=== PATIENT | male | born 1995 | race Two or more races ===

== ENCOUNTER 2017-01-10 03:55 | Emergency (ER) | payer BC ==
[2017-01-10 04:21] VITALS: BP 113/63; PULSE 62; TEMP 98.1; BMI 32.5
--- NOTE | 2017-01-10 04:54 | PDOC ---
History of Present Illness - General History Source: Patient <Kalpesh Lozano - Last Filed: 01/10/17 05:25> - General History Source: Patient Exam Limitations: No Limitations - History of Present Illness Initial Comments: 01/10/17 05:02 The patient is a 21 year old male with no significant past medical history who presents to the ED for bilateral hand pain s/p injury prior to arrival. Patient reports he was angry when he hit the chair and sustained pain to both hands. States the pain is in the palm of the right and left hand, but greater in the right. He is right hand dominant. Patient reports the pain starts from MCP joint at the 4th and 5th digits and it tracks up to the palmar aspect of the wrist. The patient denies fever, chills, cough, SOB, chest pain, and palpitations. The patient denies abdominal pain, nausea, vomiting, and diarrhea. <Amanda Aiken - Last Filed: 01/10/17 05:38> - General Chief Complaint: Injury Stated Complaint: HAND INJURY Time Seen by Provider: 01/10/17 04:53 Past History - Immunization History Immunization Up to Date: No - Psycho/Social/Smoking Cessation Hx Suicidal Ideation: No Smoking History: Never smoked Have you smoked in the past 12 months: No Hx Alcohol Use: No Drug/Substance Use Hx: No Substance Use Type: None <Kalpesh Lozano - Last Filed: 01/10/17 05:25> <Amanda Aiken - Last Filed: 01/10/17 05:38> - Past Medical History Allergies/Adverse Reactions: Allergies Allergy/AdvReac Type Severity Reaction Status Date / Time Penicillins Allergy Verified 01/10/17 04:41 Home Medications: Ambulatory Orders Ibuprofen 800 mg PO TID #30 tablet 01/10/17 Review of Systems - Review of Systems Able to Perform ROS?: Yes Comments:: 01/10/17 05:03 CONSTITUTIONAL: Absent: fever, no chills, no fatigue EYES: Absent: visual changes ENT: Absent: ear pain, no sore throat CARDIOVASCULAR: Absent: chest pain, no palpitations RESPIRATORY: Absent: cough, no SOB GI: Absent: abdominal pain, no nausea, no vomiting, no constipation, no diarrhea GENITOURINARY: Absent: dysuria, no frequency, no hematuria MUSCULOSKELETAL: +bilateral hand pain Absent: back pain SKIN: Absent: rash NEURO: Absent: headache <Amanda Aiken - Last Filed: 01/10/17 05:38> *Physical Exam - Vital Signs Last Vital Signs Temp Pulse Resp BP Pulse Ox 98.1 F 62 17 113/63 98 01/10/17 04:16 01/10/17 04:16 01/10/17 04:16 01/10/17 04:16 01/10/17 04:16 <Kalpesh Lozano - Last Filed: 01/10/17 05:25> - Vital Signs Last Vital Signs Temp Pulse Resp BP Pulse Ox 98.1 F 62 17 113/63 98 01/10/17 04:16 01/10/17 04:16 01/10/17 04:16 01/10/17 04:16 01/10/17 04:16 - Physical Exam Comments: 01/10/17 05:03 GENERAL: Well-appearing, well-nourished. No apparent distress. HEENT: Normocephalic, atraumatic. PERRL, EOM intact. CARDIOVASCULAR: Normal S1, S2. Regular rate and rhythm. PULMONARY: Clear to auscultation bilaterally. ABDOMEN: Soft, non-distended, non-tender. EXTREMITIES: Normal ROM in all four extremities. Tenderness along the palmar aspect of both hands, greater on the right. No bony deformity. SKIN: Warm, dry. No rash NEUROLOGICAL: No focal neurological deficits. <Amanda Aiken - Last Filed: 01/10/17 05:38> Medical Decision Making - Medical Decision Making 01/10/17 05:26 Dr. Lozano: The scribe's documentation has been prepared under my direction and personally reviewed by me in its entirery. I confirm that the note above accurately reflects all work, treatment, procedures, and medical decision making performed by me. <Kalpesh Lozano - Last Filed: 01/10/17 05:25> *DC/Admit/Observation/Transfer - Discharge Dispostion Admit: No <Kalpesh Lozano - Last Filed: 01/10/17 05:25> - Attestations Scribe Attestion: 01/10/17 05:03 Documentation prepared by Amanda Aiken, acting as medical staffing coordinator for Kalpesh Lozano MD/DO. <AvivaAmanda altamirano - Last Filed: 01/10/17 05:38> Diagnosis at time of Disposition: Hand sprain Qualifiers: Encounter type: initial encounter Laterality: unspecified laterality Qualified Code(s): S63.90XA - Sprain of unspecified part of unspecified wrist and hand, initial encounter - Discharge Dispostion Disposition: HOME Condition at time of disposition: Stable - Prescriptions Prescriptions: Ibuprofen 800 mg PO TID #30 tablet - Patient Instructions Printed Discharge Instructions: DI for Hand Injury, DI for Wrist Sprain
[2017-01-10] MEDS ORDERED: IBUPROFEN 400 MG TABLET (FP) PO ONE ×2 (04:55→05:28)
== END 2017-01-10 05:38 | disposition home or self-care (01) ==
LOC: JER 03:55
DX: S63.92XA Sprain of unspecified part of left wrist and hand, initial encounter (principal); S63.91XA Sprain of unspecified part of right wrist and hand, initial encounter; W22.03XA Walked into furniture, initial encounter; Y93.89 Activity, other specified; Y92.9 Unspecified place or not applicable
CPT/HCPCS: 73110-TC-LT; 73110-TC-RT; 73130-TC-LT; 73130-TC-RT; 99282-25

== ENCOUNTER 2019-09-30 18:51 | Emergency (ER) | payer BC ==
[2019-09-30 19:46] VITALS: BP 132/58; PULSE 89; TEMP 98.1; BMI 35.2
--- NOTE | 2019-09-30 19:46 | PDOC ---
Rapid Medical Evaluation Time Seen by Provider: 09/30/19 19:44 Medical Evaluation: Allergies Allergy/AdvReac Type Severity Reaction Status Date / Time Penicillins Allergy Verified 01/10/17 04:41 09/30/19 19:44 This patient had rapid medical evaluation in triage cc:lump on sole of foot HPI: Patient reports noticed, lump on mid sole of left foot states non tender, had a splinter in the same place x 1-2 months PE: NAD unlabored breathing left sole of feet with darkened callus area Orders: none This patient will proceed to ed for further evaluation. Discharge Disposition - Diagnosis Foot lesion - Referrals - Patient Instructions - Post Discharge Activity
--- NOTE | 2019-09-30 20:56 | PDOC ---
History of Present Illness - General Chief Complaint: Puncture Wound Stated Complaint: SPLINTER IN FINGER Time Seen by Provider: 09/30/19 19:44 - History of Present Illness Initial Comments: 09/30/19 20:54 24-year-old male without comorbidities presents for left foot pain x3 weeks. He feels he may have stepped on a splinter Past History - Past Medical History Allergies/Adverse Reactions: Allergies Allergy/AdvReac Type Severity Reaction Status Date / Time Penicillins Allergy Verified 01/10/17 04:41 Home Medications: Ambulatory Orders Ibuprofen 800 mg PO TID #30 tablet 01/10/17 COPD: No - Immunization History Immunization Up to Date: No - Psycho Social/Smoking Cessation Hx Smoking History: Never smoked Have you smoked in the past 12 months: No Hx Alcohol Use: No Drug/Substance Use Hx: Yes (marijuana) Substance Use Type: None Review of Systems - Review of Systems Musculoskeletal: Yes: See HPI *Physical Exam - Vital Signs Last Vital Signs Temp Pulse Resp BP Pulse Ox 98.1 F 89 19 132/58 L 100 09/30/19 19:42 09/30/19 19:42 09/30/19 19:42 09/30/19 19:42 09/30/19 19:42 - Physical Exam 09/30/19 20:54 Normal skin color and temperature at the plantar aspect of the left foot. There is a circular area of callus with black dotted center with tenderness and normal surrounding skin color and temperature. Medical Decision Making - Medical Decision Making 09/30/19 20:54 I will refer to podiatry for treatment of the plantars wart Discharge - Discharge Information Problems reviewed: Yes Clinical Impression/Diagnosis: Plantar wart of left foot Clinical Impression/Diagnosis: (Ruled Out): Foot lesion Condition: Stable Disposition: HOME - Admission No - Follow up/Referral Referrals: Wei Rosales MD [Non Staff, Medical] - Evaristo Russ MD [Staff Physician] - Christy Ba DPM [Non Staff, Medical] - Wei Juarez [Non Staff, Medical] - Arturo Jáurez MD [Non Staff, Medical] - Pito Mullins MD [Staff Physician] - - Patient Discharge Instructions Additional Instructions: Please refer to podiatry follow-up in 1 to 2 days for treatment of your plantars wart and return to the emergency room should you have further issues. A doughnut pad which can be purchased at any drugstore may help take the pressure off the area. - Post Discharge Activity
== END 2019-09-30 21:00 | disposition home or self-care (01) ==
LOC: JERFT 18:51
DX: B07.0 Plantar wart (principal); Z88.0 Allergy status to penicillin
CPT/HCPCS: 99283-25